=== PATIENT | male | born 2000 ===

== ENCOUNTER 2021-01-12 12:54 | Emergency (ER) ==
[2021-01-12] MEDS ORDERED: Iopamidol-370 76% 500 ML 1 ML ONE (13:10)
[2021-01-12 14:13] LABS: Mean Corpuscular HGB CONC 33.7 g/dL (32.0-36.0); Mean Corpuscular Hemoglobin 30.5 pg (25.0-35.0); Mean Corpuscular Volume 90.4 fL (78.0-98.0); Mean Platelet Volume 9.1 fL (7.4-10.4); Platelet Count 184 thou/uL (130-400); RBC Distribution Width 11.5 % (11.5-14.5); Red Blood Cell (RBC) Count 5.25 mill/uL (4.00-5.20); White Blood Cell (WBC) Count 11.9 thou/uL (4.8-10.8)
[2021-01-12 14:36] LABS: ALT (SGPT) 24 U/L (8-55); AST (SGOT) 22 U/L (5-34); Albumin 4.4 g/dL (3.5-5.0); Alkaline Phosphatase 101 U/L (50-130); Anion Gap 15 mmol/L (10-20); BUN (Urea Nitrogen) 22 mg/dL (8.9-20.6); Bilirubin, Total 1.2 mg/dL (0.2-1.2); Calc. Creatinine Clearance 0 mL/min (70-130); Carbon Dioxide 25 mmol/L (22-29); Chloride 104 mmol/L (98-107); Globulin 2.6 g/dL (2.4-3.5); Glucose 124 mg/dL (70-105); Potassium 3.6 mmol/L (3.5-5.1); Sodium 140 mmol/L (136-145)
[2021-01-12 14:44] LABS: Band 19 % (5-11); Lymphocytes 5 % (28-48); MDiff Complete? YES; Monocytes 3 % (0-4); Neutrophil 73 % (31-61); Platelet Morphology Comment Appears Adequate; RBC Morphology Normal
[2021-01-12] MEDS ORDERED: Morphine 4 MG/ML VIAL ONE (17:09)
[2021-01-12] MEDS ORDERED: Ondansetron PF 4 MG/2 ML Vial ONE (17:09)
== END 2021-01-12 18:49 | disposition home or self-care (01) ==
LOC: ERS 12:54
DX: K52.9 Noninfective gastroenteritis and colitis, unspecified (principal)
CPT/HCPCS: 74177; 80053; 83690; 85025; 96374; 96375; J2270; J2405; Q9967